=== PATIENT | male | born 1990 | race Hispanic/Latino ===

== ENCOUNTER 2021-06-22 10:57 | Emergency (ER) | payer SELFPAY ==
[2021-06-22] MEDS ORDERED: NA CHLORIDE 0.9% 1,000 ML ONE (11:38)
[2021-06-22] MEDS ORDERED: ONDANSETRON 4 MG/2 ML VIAL ONE ×2 (11:42→16:11)
[2021-06-22] MEDS ORDERED: MORPHINE 4 MG/ML SYR ONE ×2 (11:42→16:11)
[2021-06-22 11:52] LABS: Absolute Lymphocytes (CBC) 1.8 K/uL (0.7-4.9); Hematocrit 44.9 % (39.6-49.0); Lymphocytes % 27.7 % (15.3-44.8); MPV 8.6 fL (7.6-11.3); RBC Red Blood Cell Count 5.06 M/uL (4.33-5.43)
--- NOTE | 2021-06-22 12:44 | RAD REPORT ---
EXAM DESCRIPTION: CTAbdomen Pelvis W Contrast - 06/22/2021 12:34 pm CLINICAL HISTORY: ABD PAIN COMPARISON: No comparisons TECHNIQUE: CT of the abdomen and pelvis was performed. All CT scans are performed using dose optimization technique as appropriate and may include automated exposure control or mA/KV adjustment according to patient size. FINDINGS: Lower chest: There are a few patchy ground-glass opacities in the lower lobes bilaterally. Liver: Hepatic steatosis. Biliary: No biliary ductal dilatation. Stomach: No significant focal abnormality. Duodenum: No significant focal abnormality. Pancreas: No significant abnormality. Spleen: No significant abnormality. Adrenal: No suspicious lesions. Kidney/ureter: No hydronephrosis. No renal calculi. Retroperitoneum: No retroperitoneal adenopathy. Vascular: No aneurysm. Bowel: No significant focal abnormality. Normal appendix. Peritoneum: No ascites or free air. Bladder: Grossly unremarkable. Reproductive: No adnexal masses. Bones: No acute fracture. Other: n/a IMPRESSION: No acute intra-abdominal or pelvic finding. Patchy ground-glass opacities in the lung ba ses could reflect pneumonia, including Covid-19. Hepatic steatosis.
--- NOTE | 2021-06-22 13:03 | RAD REPORT ---
EXAM DESCRIPTION: US - Abdomen Exam Limited - 06/22/2021 12:46 pm CLINICAL HISTORY: ABD PAIN COMPARISON: Abdomen Pelvis W Contrast dated 06/22/2021 FINDINGS: The gallbladder demonstrates no gallstones. No pericholecystic fluid or gallbladder wall t hickening. The common bile duct is borderline dilated measuring 6 mm. The liver demonstrates no findings of intrahepatic biliary dilatation. Increased echogenicity liver c onsistent with hepatic steatosis. IMPRESSION: Negative for cholelithiasis or acute cholecystitis. Common bile duct caliber at upper li mits of normal. Hepatic steatosis.
[2021-06-22 13:06] LABS: BUN Blood Urea Nitrogen 11 mg/dL (7-18); Bicarbonate 26 mmol/L (21-32); Glucose Level 104 mg/dL (74-106); Potassium 3.7 mmol/L (3.5-5.1); Sodium Level 137 mmol/L (136-145)
[2021-06-22 15:09] LABS: Urine Blood Negative (Negative); Urine Glucose Negative (Negative); Urine Protein Negative (Negative)
[2021-06-22 17:28] LABS: ALT/SGPT 79 U/L (12-78); AST/SGOT 29 U/L (15-37); Albumin 3.9 g/dL (3.4-5.0); Alkaline Phosphatase 78 U/L (45-117); Bilirubin Direct 0.2 mg/dL (0-0.2); Bilirubin Total 1.1 mg/dL (0.2-1.0); Lipase 63 U/L (73-393); Protein, Total 8.4 g/dL (6.4-8.2)
--- NOTE | 2021-06-22 17:38 | ER ---
Nurse's Notes [facility] Name: Iván Shannon Age: 31 yrs Sex: Male : 1990 Arrival Date: 06/22/2021 Time: 10:57 Bed 23 Private MD: Diagnosis: Upper abdominal pain, unspecified Presentation: 06/22 10:59 Chief complaint: Patient states: this am woke up with severe pain to right side of [facility] abdomen; nothing helps patient with pain relief. Coronavirus screen: Vaccine status: Patient reports being unvaccinated. Client denies travel out of the [place] in the last 14 days. At this time, the client does not indicate any symptoms associated with coronavirus-19. Ebola Screen: Patient negative for fever greater than or equal to 101.5 degrees Fahrenheit, and additional compatible Ebola Virus Disease symptoms Patient denies exposure to infectious person. Patient denies travel to an Ebola-affected area in the 21 days before illness onset. Initial Sepsis Screen: Does the patient meet any 2 criteria? HR > 90 bpm. Does the patient have a suspected source of infection? No. Patient's initial sepsis screen is negative. Risk Assessment: Do you want to hurt yourself or someone else? Patient reports no desire to harm self or others. Onset of symptoms was June 22, 2021. 10:59 Method Of Arrival: Ambulatory [facility] 10:59 Acuity: SARAVANAN 3 5 Triage Assessment: 11:04 General: Appears distressed, uncomfortable, obese, well groomed, well developed, well [facility] nourished, Behavior is calm, cooperative, appropriate for age. Pain: Complains of pain in abdomen. GI: Abdomen is tender to palpation in right upper quadrant Reports lower abdominal pain, upper abdominal pain, cramping, Pain is 10 out of 10 on a pain scale. Historical: - Allergies: 11:04 Amoxicillin; [facility] - Immunization history:: Adult Immunizations up to date. - Social history:: Smoking status: Patient reports the use of cigarette tobacco products, denies chronic smoking, but will smoke occasionally, Patient uses alcohol, occasionally. Patient/guardian denies using alcohol, street drugs, The patient lives with family. - Family history:: not pertinent. Screenin:36 Abuse screen: Denies threats or abuse. Denies injuries from another. Nutritional ab2 screening: No deficits noted. Tuberculosis screening: No symptoms or risk factors identified. Fall Risk None identified. Assessment: 11:34 General: Appears in no apparent distress. Behavior is calm, cooperative, appropriate ab2 for age. Pain: Complains of pain in right upper quadrant and right lower quadrant Pain currently is 10 out of 10 on a pain scale. Quality of pain is described as sharp. Neuro: No deficits noted. Level of Consciousness is awake, alert, obeys commands, Oriented to person, place, time, situation, Appropriate for age [employer] are equal bilaterally Moves all extremities. Gait is steady, Speech is normal, Facial symmetry appears normal. Cardiovascular: No deficits noted. Denies chest pain, shortness of breath, Heart tones S1 S2 present Patient's skin is warm and dry. Respiratory: No deficits noted. Airway is patent Breath sounds are clear bilaterally. GI: Abdomen is round non-distended, Bowel sounds present X 4 quads. Abd is non tender in right upper quadrant and right lower quadrant Reports lower abdominal pain, upper abdominal pain. : No deficits noted. No signs and/or symptoms were reported regarding the genitourinary system. EENT: No deficits noted. No signs and/or symptoms were reported regarding the EENT system. Derm: No deficits noted. No signs and/or symptoms reported regarding the dermatologic system. Musculoskeletal: No deficits noted. No signs and/or symptoms reported regarding the musculoskeletal system. 13:35 Reassessment: No changes from previously documented assessment. Patient and/or family bp updated on plan of care and expected duration. Pain level reassessed. UOP PENDING. 17:15 Reassessment: No changes from previously documented assessment. Patient and/or family bp updated on plan of care and expected duration. Pain level reassessed. RESULTS PENDING FROM LAB. Vital Signs: 10:59 BP 131 / 84; Pulse 100; Resp 18; Temp 98.7; Pulse Ox 100% ; Weight 131.54 kg; Height 5 jh5 ft. 7 in. (170.18 cm); Pain 10/10; 11:55 BP 110 / 74; Pulse 92; Resp 17; Pulse Ox 96% on R/A; ab2 13:23 BP 115 / 72; Pulse 87; Resp 17; Pulse Ox 98% on R/A; Pain 4/10; ab2 14:06 BP 118 / 71; Pulse 82; Resp 17; Pulse Ox 94% on R/A; Pain 5/10; ab2 15:00 BP 116 / 73; Pulse 80; Resp 16; Pulse Ox 98% on R/A; ab2 16:00 BP 114 / 71; Pulse 83; Resp 17; Pulse Ox 99% on R/A; Pain 7/10; ab2 17:00 BP 119 / 88; Pulse 87; Resp 18; Pulse Ox 93% on R/A; ab2 18:00 BP 121 / 73; Pulse 86; Resp 16; Pulse Ox 99% on R/A; Pain 0/10; ab2 10:59 Body Mass Index 45.42 (131.54 kg, 170.18 cm) [facility] ED Course: 10:57 Patient arrived in ED. as 11:04 Triage completed. 5 11:04 Arm band placed on left wrist. [facility] 11:14 Wilver Antunez, BRYNN is Primary Nurse. bp 11:16 Fidel Posey MD is Attending Physician. ma2 11:33 Basic Metabolic Panel Sent. ab2 11:33 CBC with Diff Sent. ab2 11:33 Hepatic Function Sent. ab2 11:33 Lipase Sent. ab2 11:35 Patient has correct armband on for positive identification. Bed in low position. Call ab2 light in reach. Side rails up X2. 11:35 No provider procedures requiring assistance completed. Inserted saline lock: 18 gauge ab2 in right antecubital area, using aseptic technique. Blood collected. 12:34 CT Abd/Pelvis - IV Contrast Only In Process Unspecified. EDMS 12:46 US Abdomen Limited In Process Unspecified. EDMS 17:37 Yecenia Ware MD is Referral Physician. ma2 18:11 IV discontinued, intact, bleeding controlled, No redness/swelling at site. Pressure ab2 dressing applied. Administered Medications: 11:38 Drug: NS 0.9% 1000 ml Route: IV; Rate: 1 bolus; Site: right antecubital; ab2 11:44 Drug: morphine 4 mg Route: IVP; Site: right antecubital; bp 11:44 Drug: Zofran (Ondansetron) 4 mg Route: IVP; Site: right antecubital; bp 16:14 Drug: morphine 4 mg Route: IVP; Site: right antecubital; bp 16:14 Drug: Zofran (Ondansetron) 4 mg Route: IVP; Site: right antecubital; bp Outcome: 17:37 Discharge ordered by . dharmesh 18:11 Discharged to home ambulatory. ab2 18:11 Condition: good 18:11 Discharge instructions given to patient, Instructed on discharge instructions, follow up and referral plans. medication usage, Demonstrated understanding of instructions, follow-up care, medications, Prescriptions given X 1. 18:11 Patient left the ED. ab2 Signatures: Dispatcher [employer] Alexa Suggs Brian, RN RN Fidel Haley MD MD ma2 Latisha Martinez RN RN 5 Lan Gomez ab2
--- NOTE | 2021-06-22 17:38 | EDPHYS ---
Physician Documentation [facility] Name: Iván Shannon Age: 31 yrs Sex: Male : 1990 Arrival Date: 06/22/2021 Time: 10:57 Bed 23 Private MD: ED Physician Fidel Posey HPI: 06/22 12:09 This 31 yrs old Male presents to ER via Ambulatory with complaints of ma2 Abdominal Pain. 12:09 Associated signs and symptoms: Pertinent negatives: blood in stools, diarrhea, dysuria, ma2 shortness of breath, vomiting. Severity of pain: At its worst the pain was moderate in the emergency department the pain is unchanged. The patient has experienced similar episodes in the past. Historical: - Allergies: 11:04 Amoxicillin; jh5 - Immunization history:: Adult Immunizations up to date. - Social history:: Smoking status: Patient reports the use of cigarette tobacco products, denies chronic smoking, but will smoke occasionally, Patient uses alcohol, occasionally. Patient/guardian denies using alcohol, street drugs, The patient lives with family. - Family history:: not pertinent. ROS: 12:09 Constitutional: Negative for fever, chills, and weight loss. ma2 12:09 All other systems are negative. Exam: 12:09 Constitutional: This is a well developed, well nourished patient who is awake, alert, ma2 and in no acute distress. Head/Face: Normocephalic, atraumatic. Eyes: Pupils equal round and reactive to light, extra-ocular motions intact. Lids and lashes normal. Conjunctiva and sclera are non-icteric and not injected. Cornea within normal limits. Periorbital areas with no swelling, redness, or edema. ENT: Nares patent. No nasal discharge, no septal abnormalities noted. Tympanic membranes are normal and external auditory canals are clear. Oropharynx with no redness, swelling, or masses, exudates, or evidence of obstruction, uvula midline. Mucous membranes moist. Neck: Trachea midline, no thyromegaly or masses palpated, and no cervical lymphadenopathy. Supple, full range of motion without nuchal rigidity, or vertebral point tenderness. No Meningismus. Chest/axilla: Normal chest wall appearance and motion. Nontender with no deformity. No lesions are appreciated. Cardiovascular: Regular rate and rhythm with a normal S1 and S2. No gallops, murmurs, or rubs. Normal PMI, no JVD. No pulse deficits. Respiratory: Lungs have equal breath sounds bilaterally, clear to auscultation and percussion. No rales, rhonchi or wheezes noted. No increased work of breathing, no retractions or nasal flaring. Abdomen/GI: Soft, non-tender, with normal bowel sounds. No distension or tympany. No guarding or rebound. No evidence of tenderness throughout. Skin: Warm, dry with normal turgor. Normal color with no rashes, no lesions, and no evidence of cellulitis. MS/ Extremity: Pulses equal, no cyanosis. Neurovascular intact. Full, normal range of motion. Neuro: Awake and alert, GCS 15, oriented to person, place, time, and situation. Cranial nerves II-XII grossly intact. Motor strength 5/5 in all extremities. Sensory grossly intact. Cerebellar exam normal. Normal gait. Vital Signs: 10:59 BP 131 / 84; Pulse 100; Resp 18; Temp 98.7; Pulse Ox 100% ; Weight 131.54 kg; Height 5 [facility] ft. 7 in. (170.18 cm); Pain 10/10; 11:55 BP 110 / 74; Pulse 92; Resp 17; Pulse Ox 96% on R/A; ab2 13:23 BP 115 / 72; Pulse 87; Resp 17; Pulse Ox 98% on R/A; Pain 4/10; ab2 14:06 BP 118 / 71; Pulse 82; Resp 17; Pulse Ox 94% on R/A; Pain 5/10; ab2 15:00 BP 116 / 73; Pulse 80; Resp 16; Pulse Ox 98% on R/A; ab2 16:00 BP 114 / 71; Pulse 83; Resp 17; Pulse Ox 99% on R/A; Pain 7/10; ab2 17:00 BP 119 / 88; Pulse 87; Resp 18; Pulse Ox 93% on R/A; ab2 18:00 BP 121 / 73; Pulse 86; Resp 16; Pulse Ox 99% on R/A; Pain 0/10; ab2 10:59 Body Mass Index 45.42 (131.54 kg, 170.18 cm) [facility] MDM: 11:16 Patient medically screened. ma2 17:36 Differential diagnosis: gastritis, gastroesophageal reflux disease, Hepatitis, ma2 non-specific abd pain. Data reviewed: vital signs, nurses notes. Counseling: I had a detailed discussion with the patient and/or guardian regarding: the historical points, exam findings, and any diagnostic results supporting the discharge/admit diagnosis, the presence of at least one elevated blood pressure reading (>120/80) during this emergency department visit, the need for outpatient follow up. Response to treatment: the patient's symptoms have markedly improved after treatment. ED course: On ultrasound, CBD is borderline, otherwise T bili and D bili are not elevated, liver function and transaminases enzymes are not elevated. All symptoms resolved at this time, CTs shows hepatic steatosis, otherwise lab work is unremarkable. I explained to patient need to follow-up with GI. We will give a GI referral.. 06/22 11:19 Order name: Basic Metabolic Panel; Complete Time: 17:35 hi2 06/22 11:19 Order name: CBC with Diff; Complete Time: 13:22 [facility] 06/22 11:19 Order name: Hepatic Function; Complete Time: 17:35 hi2 06/22 11:19 Order name: Lipase; Complete Time: 17:35 hi2 06/22 14:22 Order name: CREATININE WHOLE BLOOD; Complete Time: 14:35 EDAL 06/22 15:07 Order name: Urine Dipstick-Ancillary; Complete Time: 16:31 EDAL 06/22 11:19 Order name: CT Abd/Pelvis - IV Contrast Only; Complete Time: 13:22 hi2 06/22 12:08 Order name: US Abdomen Limited; Complete Time: 13:22 hi2 06/22 16:14 Order name: COVID-19/FLU A+B (Document "Date of Onset" if Symptomatic) bp 06/22 16:14 Order name: COVID-19/FLU A+B EDAL 06/22 11:19 Order name: IV Saline Lock; Complete Time: 11:33 hi2 06/22 11:19 Order name: Labs collected and sent; Complete Time: 11:33 hi2 06/22 11:19 Order name: Urine Dipstick-Ancillary (obtain specimen); Complete Time: 16:19 ma2 Administered Medications: 11:38 Drug: NS 0.9% 1000 ml Route: IV; Rate: 1 bolus; Site: right antecubital; ab2 11:44 Drug: morphine 4 mg Route: IVP; Site: right antecubital; bp 11:44 Drug: Zofran (Ondansetron) 4 mg Route: IVP; Site: right antecubital; bp 16:14 Drug: morphine 4 mg Route: IVP; Site: right antecubital; bp 16:14 Drug: Zofran (Ondansetron) 4 mg Route: IVP; Site: right antecubital; bp Disposition Summary: 06/22/21 17:37 Discharge Ordered Location: Home ma2 Condition: Stable ma2 Diagnosis - Upper abdominal pain, unspecified ma2 Followup: ma2 - With: Yecenia Ware MD - When: Tomorrow - Reason: If symptoms return Discharge Instructions: - Discharge Summary Sheet ma2 - Abdominal Pain, Adult ma2 - Fatty Liver Disease ma2 Forms: - Medication Reconciliation Form ma2 - Thank You Letter ma2 - Antibiotic Education ma2 - Prescription Opioid Use ma2 Prescriptions: - Diclofenac Sodium 75 mg Oral Tablet Sustained Release - take 1 tablet by ORAL route 2 times per day; 30 tablet; Refills: 0, Product ma2 Selection Permitted Signatures: Dispatcher [employer] Wilver Rowe RN RN bp Fidel Posey MD MD ma2 Latisha Martinez RN RN 5 Lan Gomez 2 Corrections: (The following items were deleted from the chart) : 11:19 Urine Test ordered. ma2 bp
[2021-06-22 18:18] VITALS: TEMP 98.7
[2021-06-22 18:27] VITALS: BP 121/73; O2SAT 99
[2021-06-22 19:37] LABS: SARS-COV-2 RT PCR POSITIVE (NEGATIVE)
== END 2021-06-22 18:11 | disposition home or self-care (01) ==
LOC: ER 10:57
DX: R10.10 Upper abdominal pain, unspecified (principal)
CPT/HCPCS: 0240U; 36415; 74177; 76705; 80048; 80076; 81003; 82565; 83690; 85025; 96374; 96375; 99284; J2405; J7030; Q9967